=== PATIENT | female | born 1975 | race Two or more races ===

== ENCOUNTER 2018-11-12 03:41 | Inpatient (IN) | payer OTHER ==
[~2018-11-12] VITALS: Ht 157.5 cm; Wt 80.3 kg
[2018-11-12 04:00] VITALS: BP 131/63
--- NOTE | 2018-11-12 04:00 | NUR ---
BUILDING CODE INSPECTORSNOW PLOW TRACTOR OPERATOR NOTES RECEIVED DIRECT ADMIT FROM [facility] VIA AMBULANCE WITH ACLS PROTOCOL.ALERT,ORIENTED X4,AMBULATORY,SALINE LOCK LEFT AC INTACT AND PATENT,NO SKIN ISSUES.NO KNOWN ALLERGY,DENIES PAIN.VITAL SIGNS WITH IN NORMAL LIMITS,CALL LIGHT IN REACH,NEEDS ANTICIPATED,AWAITING DOCTORS ORDERS.
[2018-11-12 04:28] VITALS: BP 131/63
[2018-11-12] MEDS ORDERED: CALC500T51 PO (04:28)
[2018-11-12] MEDS ORDERED: MAGN400T6 PO (04:28)
[2018-11-12] MEDS ORDERED: LEVO125T8 PO (04:28)
--- NOTE | 2018-11-12 05:30 | NUR ---
ATHLETIC EVENTS SCORER NOTES SEEN AND EXAMINED BY HOSPITALIST COLLEEN SMALL DNP,WITH NEW ORDERS NOTED AND CARRIED. OUT
[2018-11-12] MEDS ORDERED: Z GUARD REMEDY 2 OZ OINT TP PRN (06:00)
[2018-11-12] MEDS ORDERED: ZOLPIDEM TARTRATE 5 MG TABLET PO PRN (06:00)
[2018-11-12] MEDS ORDERED: HYDROCODONE/APAP 5/325MG 1 EACH TABLET PO PRN (06:00)
[2018-11-12] MEDS ORDERED: ACETAMINOPHEN 325 MG TABLET PO PRN (06:00)
[2018-11-12] MEDS ORDERED: ONDANSETRON HCL/PF 4 MG/2 ML VIAL IVP PRN (06:00)
[2018-11-12] MEDS ORDERED: MAG HYDROX/AL HYDROX/SIMETH 30 ML UDC PO PRN (06:00)
[2018-11-12] MEDS ORDERED: MAGNESIUM HYDROXIDE 30 ML UDC PO PRN (06:00)
[2018-11-12] MEDS: IV NS 0.9% 1,000 ML IV PRN (06:12)
--- NOTE | 2018-11-12 06:32 | NUR ---
MARKETING TRAFFIC MANAGER NOTES IV SITE INFILTRATED.NEW SALINE LOCK PLACE ON LEFT HAND #22,FLUSHED AND KEPT PATENT.NS AT 75ML/HR RATE STARTED.
--- NOTE | 2018-11-12 06:33 | NUR ---
MANAGER BUSINESS MANAGEMENT NOTES SCALDER PAIN AT THE MOMENT.IVF INFUSING.,WILL ENDORSE TO DAY NURSE FOR PAM.
[2018-11-12 07:37] LABS: BASOPHILS % (AUTO) 0.4 % (0.0-2.0); EOSINOPHILS % (AUTO) 1.3 % (0.0-6.0); HEMATOCRIT 33 % (33-45); HEMOGLOBIN 11.1 g/dL (11.5-14.8); LYMPHOCYTES # (AUTO) 2.2 /CMM (0.8-4.8); LYMPHOCYTES % (AUTO) 25.2 % (20.0-44.0); MEAN CORPUSCULAR HGB CONC 34 g/dl (31.0-36.0); MEAN CORPUSCULAR VOLUME 83 fL (82-100); MONOCYTES # (AUTO) 0.5 /CMM (0.1-1.30); MONOCYTES % (AUTO) 5.8 % (2.0-12.0); NEUTROPHILS # (AUTO) 5.8 /CMM (1.8-8.9); NEUTROPHILS % (AUTO) 67.3 % (43.0-81.0); PLATELET COUNT (AUTO) 444 /CMM (150-450); RED BLOOD CELL COUNT(AUTO) 3.99 MIL/uL (4.0-5.2); WHITE BLOOD COUNT (AUTO) 8.6 K/uL (4.3-11.0)
[2018-11-12 07:46] LABS: ALBUMIN 3.4 g/dL (3.4-5.0); BILIRUBIN,TOTAL 0.2 mg/dL (0.2-1.0); CALCIUM, SERUM 6.1 mg/dL (8.5-10.1); CREATININE 0.6 mg/dL (0.6-1.3); MAGNESIUM 1.5 mg/dL (1.8-2.4); PHOSPHORUS 6.1 mg/dL (2.5-4.9); POTASSIUM 3.7 mmol/L (3.5-5.1); TOTAL PROTEIN, SERUM 7.7 g/dL (6.4-8.2)
[2018-11-12 07:53] LABS: THYROID STIMULATING HORMONE 1.7 uIU/mL (0.358-3.74)
[2018-11-12 08:00] VITALS: BP 106/70
--- NOTE | 2018-11-12 08:00 | NUR ---
LEATHER SOFTENER OPENING NOTES Received Patient awake and resting in bed. A/O x 4. VS stable with no acute distress. Breathing even and unlabored on room air with no respiratory distress. Denies pain. Telemonitor in place and operational reading SR with HR-74. 20g PIV on LAC clean, dry, intact. 18g PIV on LEFT HAND, clean, dry, intact and flushing well with NS running at 75ml/hr. Safety precautions in place. Bed locked and set to lowest position with side rails x 2 up. All needs rendered at this time. Will continue to monitor.
[2018-11-12] MEDS: MAGNESIUM OXIDE 400 MG TABLET PO SCH (08:46)
[2018-11-12] MEDS: LEVOTHYROXINE SODIUM 125 MCG TABLET PO SCH (08:46)
[2018-11-12] MEDS: CALCIUM CARBONATE (1250) 500 MG TABLET PO SCH ×3 (08:46→17:41)
[2018-11-12] MEDS ORDERED: Calcium Gluconate 1GM/10ML 9.3 MEQ in IV NS 0.9% 250 ML IV ONE (12:00)
[2018-11-12] MEDS: SOD FERRIC GLUC 125 MG in IV NS 0.9% 100 ML IV SCH (14:54)
[2018-11-12 16:00] VITALS: BP 117/72
--- NOTE | 2018-11-12 18:35 | NUR ---
Patient lives at home with family. She is ambulatory and independent with adl's. Denies having DME or homehealth. Pcp is Dr. Ron Brock at [facility] in [facility]. No dc planning needs identified at this time. Addendum: 11/12/18 at 1836 by MEL PIZARRO RN Amended: Links added.
--- NOTE | 2018-11-12 19:03 | NUR ---
MS RN CLOSING NOTES Patient awake and resting in bed. A/O x 4. VS stable with no acute distress. Breathing even and unlabored on room air with no respiratory distress. Denies pain. 18g PIV on LEFT HAND, clean, dry, intact and flushing well with NS running at 75ml/hr. Safety precautions in place. Bed locked and set to lowest position with side rails x 2 up. All needs rendered at this time. Will endorse plan of care to oncoming shift.
--- NOTE | 2018-11-12 19:30 | NUR ---
MS RN PM OPENING NOTE BEDSIDE REPORT RECIEVED FROM SRAVANTHI BLANCO. POC REVIEWED WITH PATIENT QUESTIONS CONCERNS ADDRESSED. Patient awake and resting in bed. A/O x 4. IN no acute distress. Breathing even and unlabored Denies pain. 18g PIV on LEFT HAND, clean, dry, intact INFUSING at 75ml/hr MILD SWELLING NOTED OF LEFT HAND CONT TO MONITOR. Safety precautions in place. Bed locked and set to lowest position with side rails x 2 up.
[2018-11-12 20:50] VITALS: BP 115/83
[2018-11-13] MEDS: IV NS 0.9% 1,000 ML IV PRN (02:38)
--- NOTE | 2018-11-13 03:00 | NUR ---
patient refusing ivf. patient disconnected from ivf to go to br. when returning to bed patient states,"I don't want to be connected to the iv for the rest of the night. i think it will help me sleep better." reinforced that the doctor is recommending ivf for hydration. patient states, "lets just see how i feel in the am, maybe we could reconnect it."
--- NOTE | 2018-11-13 06:30 | NUR ---
RN PM CLOSING NOTE PATIENT SEEN IN BED. AWAKENS TO VOICE. DENIES DISTRESS. OFFERED TO REATTACH IVF. REPORTS THAT HER IV SITE FEELS TOO SENSITIVE UPON FLUSHING. IV FLUSHES GOOD WITH NO SS OF INFILTRATION. PATIENT INFORMED SHE MAY NEED NEW ONE BUT WILL WAIT FOR MD TO PERFORM ROUNDS. LAB AT BEDSIDE TO DRAW LABS. BED DOWN LOCKED CALL LIGHT IN REACH VERBALIZED UNDERSTNADING TO CALLL FOR ASSISTANCE IF NEEDED.
[2018-11-13] MEDS: LEVOTHYROXINE SODIUM 125 MCG TABLET PO SCH (07:05)
[2018-11-13 07:43] LABS: BASOPHILS % (AUTO) 0.6 % (0.0-2.0); HEMATOCRIT 36 % (33-45); HEMOGLOBIN 12.1 g/dL (11.5-14.8); LYMPHOCYTES # (AUTO) 1.9 /CMM (0.8-4.8); LYMPHOCYTES % (AUTO) 24.6 % (20.0-44.0); MEAN CORPUSCULAR HGB CONC 34 g/dl (31.0-36.0); MEAN CORPUSCULAR VOLUME 83 fL (82-100); MONOCYTES # (AUTO) 0.5 /CMM (0.1-1.30); MONOCYTES % (AUTO) 6.1 % (2.0-12.0); NEUTROPHILS # (AUTO) 5.3 /CMM (1.8-8.9); NEUTROPHILS % (AUTO) 67.7 % (43.0-81.0); PLATELET COUNT (AUTO) 460 /CMM (150-450); RED BLOOD CELL COUNT(AUTO) 4.35 MIL/uL (4.0-5.2); WHITE BLOOD COUNT (AUTO) 7.8 K/uL (4.3-11.0)
[2018-11-13 07:51] LABS: CALCIUM, SERUM 6.7 mg/dL (8.5-10.1); CREATININE 0.6 mg/dL (0.6-1.3); MAGNESIUM 1.5 mg/dL (1.8-2.4); PHOSPHORUS 5.6 mg/dL (2.5-4.9); POTASSIUM 3.9 mmol/L (3.5-5.1)
--- NOTE | 2018-11-13 07:57 | NUR ---
MS RN OPENING NOTES Received Patient awake and resting in bed. A/O x 4. VS stable with no acute distress. Breathing even and unlabored on room air with no respiratory distress. Denies pain. 18g PIV on LEFT HAND, clean, dry, intact and flushing well. Patient stated that she wants to rest from IVF. Will continue to monitor. Safety precautions in place. Bed locked and set to lowest position with side rails x 2 up. All needs rendered at this time. Will continue to monitor.
[2018-11-13 08:00] VITALS: BP 105/66
[2018-11-13] MEDS: MAGNESIUM OXIDE 400 MG TABLET PO SCH (08:37)
[2018-11-13] MEDS: CALCIUM CARBONATE (1250) 500 MG TABLET PO SCH ×2 (08:37→13:18)
[2018-11-13] MEDS ORDERED: Calcium Gluconate 1GM/10ML 9.3 MEQ in IV NS 0.9% 250 ML IV ONE (10:00)
[2018-11-13] MEDS: Magnesium 1GM/D5W 100ML PREMIX 100 ML IV SCH ×2 (10:01→11:31)
[2018-11-13] MEDS: SOD FERRIC GLUC 125 MG in IV NS 0.9% 100 ML IV SCH (14:00)
--- NOTE | 2018-11-13 16:21 | NUR ---
MS ANATOMIC PATHOLOGY ASSISTANT NOTES Patient discharged for home at this time. A/O x 4. Patient in stable condition. VS stable with no acute distress. Breathing even and unlabored on room air with no respiratory distress. Denies pain. Skin intact. Medication reconciliation and discharge instructions reviewed and explained to Patient and family. Patient and family verbalized understanding. Patient will follow up with PCP and Abrasive Grinder in 1 week. All belongings with Patient. Patient picked up by , Minor. Escorted Patient to the lobby for safety.
== END 2018-11-13 16:20 | disposition home or self-care (01) | DRG 425 ==
LOC: TELE 03:41 → MED 08:05
PROVIDERS: ADMIT Internal Medicine; ATTEND Nurse Practitioner Acute Care
DX: E83.51 Hypocalcemia (principal); D64.9 Anemia, unspecified; E86.0 Dehydration; E89.0 Postprocedural hypothyroidism; E83.42 Hypomagnesemia
CPT/HCPCS: 36415; 80048-TC; 80053-TC; 80061-TC; 82306; 82310-TC; 82330; 83540-TC; 83735-TC; 84100-TC; 84439-TC; 84443-TC; 84702-TC; 85025-TC; 87081-TC; 97116-TC; 97530-TC; G0378; J0610; J2916; J3475; J7030; J7050; J7060